=== PATIENT | male | born 1990 | race Caucasian/White ===

== ENCOUNTER 2022-09-23 19:30 | Emergency (ER) | payer BC, SELFPAY ==
[2022-09-23 19:31] VITALS: BP 134/86; PULSE 83; RESP 16; TEMP 36.7; O2SAT 98; BMI 26.7
--- NOTE | 2022-09-23 20:15 | EDS_ITS ---
HPI History of Present Illness Chief Complaint: Male Pain/Injury Informant: patient and spouse/S.O. Narrative Narrative: Increasing pain around left testicle since earlier today. 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 No history of similar. No difficulties urinating. No penile discharge. Is single partner. No history of STDs. Took ibuprofen 1 1 PM that did help with symptoms. Pain with palpation. Prior similar symptoms: No PFSH PFSH Medical History no medical history Home Medications ciprofloxacin HCl 500 mg tablet 500 mg PO BID #14 TABLETS 09/23/22 [Rx Last Taken Unknown] Allergy/AdvReac Type Severity Reaction Status Date / Time No Known Allergies Allergy Verified 09/23/22 19:31 Surgical History no surgical history Social History Smoking Status: Current every day smoker tobacco type: smokeless tobacco ROS ROS ED Constitutional Constitutional ED: Denies chills, fever(s) or sweats Eyes Eyes: Denies change in vision ENT ENT ED: Denies dysphagia or sore throat Cardiovascular Cardiovascular: Denies chest pain, leg edema, palpitations or racing heartbeat Respiratory/Chest Respiratory/Chest: Denies cough, dyspnea or dyspnea on exertion Gastrointestinal Gastrointestinal: Denies abdominal pain, diarrhea, nausea or vomiting Genitourinary Genitourinary ED: Reports other Details: Left testicle pain ; Denies dysuria, hematuria or urinary frequency Musculoskeletal Musculoskeletal: Denies back pain, extremity pain or neck pain Integumentary Denies rash or wounds Neurologic Neurologic: Denies headache(s), paresthesias or weakness EXAM Physical Exam Const Vital Signs: 09/23/22 19:31 09/23/22 22:25 Temperature 98.1 F Temperature Source Temporal Pulse Rate 83 73 Respiratory Rate 16 18 Blood Pressure 134/86 H 135/73 H Blood Pressure Mean 102 Pulse Ox 98 100 Positive well nourished and well developed General Appearance ED: well developed and NAD HEENT Reports moist mucous membranes normocephalic and atraumatic Eyes PERRL, EOMs intact bilaterally and conjunctivae normal General Eye ED: Yes normal appearance of both eyes Neck no lymphadenopathy and supple General: Negative for tenderness Chest Wall Chest: Negative for tenderness Resp normal respiratory effort and normal air movement Effort and Inspection: symmetric chest movement; Negative for respiratory distress Cardio regular rate, regular rhythm and no murmurs Peripheral Pulses: pulses 2+ throughout GI normal to inspection, nondistended, normoactive bowel sounds and non-tender Palpation: Negative for guarding or rebound tenderness present Narrative: Normal penile shaft, right testicle is normal with no epididymal tenderness. Left testicle tenderness at the epididymis, no scrotal mass or fluctuance. No erythema. Back/Spine no CVA tenderness and no thoracic nor lumbar tenderness Extremity normal to inspection General Extremety ED: Negative for edema or tenderness General Extremity: Negative for edema Neuro oriented x3 and no sensory deficits noted Sensorium / Orientation: awake and alert Skin no rashes or lesions noted and no wounds MDM MDM MDM Narrative Medical decision making narrative: Interventions / MDM: Differential diagnosis: Epididymitis Diagnosis considered but do not suspect: No clinical scrotal torsion My EKG interpretation: N/A Imaging independently reviewed and interpreted by myself: N/A External documents reviewed: N/A Test considered but not ordered:N/A ED course: Clinical epididymitis on exam. Urine sent negative. Started on Cipro ibuprofen. Re-evaluation: stable. Discussed scrotal support continue NSAIDs. Outpatient given to urology. Meds to bed with Cipro provided. Disposition discussed with patient/family/significant other: Patient and significant other Case discussed with consulting clinician: N/A This note was generated with [employer] dictation software. It may contain incorrect words, spelling, and punctuation that were not noted in checking the note before signing. Lab Data Labs: Laboratory Results - last 24 hr 09/23/22 20:25 Urine Color Yellow Urine Clarity Clear Urine pH 6.5 Ur Specific Humphreys 1.010 Urine Protein Negative Urine Glucose (UA) Normal Urine Ketones Negative Urine Occult Blood Negative Urine Nitrite Negative Urine Bilirubin Negative Urine Urobilinogen Normal Ur Leukocyte Esterase Negative Urine RBC 0 SEEN Urine WBC 0 SEEN Ur Squamous Epith Cells 0 SEEN Urine Bacteria 0 SEEN Urine Mucus 0 SEEN Chlamydia DNA (ANTOINE) Cancelled N.gonorrhoeae DNA (ANTOINE) Cancelled Discharge Plan Triage Chief Complaint: Male Pain/Injury ED Provider: Law Vigil Dx/Rx/DC Orders Clinical Impression: Epididymitis, left Instructions: ED Epididymitis Prescriptions: New ciprofloxacin HCl [ciprofloxacin HCl] 500 mg tablet 500 mg PO BID Qty: 14 0RF Primary Care Provider: Care Physician,No Primary Referrals: Edgar Shearer MD [Med Staff - Active Staff] - 1-2 Weeks NOT,DEFINED [Non-Staff] - Disposition Disposition: Home, Self Care Discharge Date/Time: 09/23/22 22:25
[2022-09-23 20:37] LABS: Bacteria 0 SEEN /hpf (None Seen); Mucous, Urine 0 SEEN /hpf (<or=2+); Red Blood Cells-Urine 0 SEEN /hpf (0-5); Squamous Epithelial Cells - UA 0 SEEN /hpf (0-5); White Blood Cells 0 SEEN /hpf (0-5)
[2022-09-23 20:45] LABS: Color, Urine Yellow (Yellow); Glucose, Dipstick Normal (Normal); Ketone-Dipstick Negative (Negative); Leukocyte Esterase-Dipstick Negative /ul (Negative); Nitrite-Dipstick Negative (Negative); Occult Blood-Urine Negative /ul (Negative); Protein-Dipstick Negative (Negative); Urine Bilirubin Dipstick Negative (Negative); Urine Clarity Clear (Clear); Urine Urobilinogen Normal (Normal); Urine pH 6.5 (5.0 - 8.0)
[2022-09-23] MEDS: Ibuprofen 600 MG Tablet PO (20:49)
[2022-09-23] MEDS: Ciprofloxacin 500 MG Tablet PO (20:49)
[2022-09-23 22:25] VITALS: BP 135/73; PULSE 73; RESP 18; O2SAT 100
== END 2022-09-23 22:25 | disposition home or self-care (01) ==
PROVIDERS: Emergency Provider Emergency Medicine; Visit Provider Emergency Medicine
DX: N45.1 Epididymitis (principal); Z11.3 Encounter for screening for infections with a predominantly sexual mode of transmission; F17.220 Nicotine dependence, chewing tobacco, uncomplicated
CPT/HCPCS: 81001; 87086; 87491; 87591; 99283